=== PATIENT | male | born 1945 | race Caucasian/White ===

== ENCOUNTER → 2019-07-01 | Outpatient (CLI) | payer OTHER | LOC: M.MRI 12:59 | DX: M47.816 Spondylosis without myelopathy or radiculopathy, lumbar region (principal); M48.061 Spinal stenosis, lumbar region without neurogenic claudication; M47.817 Spondylosis without myelopathy or radiculopathy, lumbosacral region; M48.07 Spinal stenosis, lumbosacral region; M25.78 Osteophyte, vertebrae; M54.41 Lumbago with sciatica, right side; C61 Malignant neoplasm of prostate; Z87.39 Personal history of other diseases of the musculoskeletal system and connective tissue; Z98.890 Other specified postprocedural states ==

== ENCOUNTER 2019-08-01 20:03 | Emergency (ER) | payer OTHER ==
[~2019-08-01] VITALS: Ht 182.9 cm; Wt 90.7 kg
[2019-08-01] MEDS ORDERED: IBUPROFEN 400400 M1 PO (20:18)
[2019-08-01] MEDS ORDERED: ASA81BEC PO (20:18)
[2019-08-01] MEDS ORDERED: COD LIVER OIL473 ML PO (20:19)
[2019-08-01] MEDS ORDERED: EFFER-K 20 MEQ20 ME1 PO (20:19)
[2019-08-01] MEDS ORDERED: TOPROL XL25 MG PO (20:19)
[2019-08-01] MEDS ORDERED: MICROZIDE12.5 MG PO (20:20)
[2019-08-01] MEDS ORDERED: ATORVASTATIN CA80 MG PO (20:20)
[2019-08-01] MEDS ORDERED: [UNRECOGNIZED DRUG - OTHER] PO (20:21)
[2019-08-01] MEDS ORDERED: NEURONTIN 300M300 M2 PO (20:23)
[2019-08-01] MEDS ORDERED: NIGHTTIME SLEEP25 M1 PO (20:23)
[2019-08-01] MEDS ORDERED: TRAMADOL 50 MG50 MG PO (20:23)
[2019-08-01] MEDS ORDERED: KEFLEX500 M1 PO (21:20)
[2019-08-01 21:24] VITALS: BP 136/76
== END 2019-08-01 21:25 | disposition home or self-care (01) ==
LOC: M.ERS 20:03
DX: S61.411A Laceration without foreign body of right hand, initial encounter (principal); Z88.8 Allergy status to other drugs, medicaments and biological substances; Z90.49 Acquired absence of other specified parts of digestive tract; W26.8XXA Contact with other sharp object(s), not elsewhere classified, initial encounter; Y93.89 Activity, other specified; Y92.89 Other specified places as the place of occurrence of the external cause; Y99.8 Other external cause status

== ENCOUNTER → 2020-03-09 | Outpatient (CLI) | payer OTHER ==
[~2020-03-09] MED LIST: ASA81BEC PO; ATORVASTATIN CA80 MG PO; COD LIVER OIL473 ML PO; EFFER-K 20 MEQ20 ME1 PO; IBUPROFEN 400400 M1 PO; KEFLEX500 M1 PO; MICROZIDE12.5 MG PO; NEURONTIN 300M300 M2 PO; NIGHTTIME SLEEP25 M1 PO; TOPROL XL25 MG PO; TRAMADOL 50 MG50 MG PO; [UNRECOGNIZED DRUG - OTHER] PO
== END ==
LOC: M.ULTRA 10:24
PROVIDERS: ATTEND Family Medicine
DX: N28.1 Cyst of kidney, acquired (principal); N28.9 Disorder of kidney and ureter, unspecified